=== PATIENT | female | born 1955 | race Caucasian/White ===

== ENCOUNTER → 2021-05-02 | Outpatient (RCR) | payer BC | LOC: PT 04-18 14:52 | PROVIDERS: ATTEND Specialist | DX: M17.12 Unilateral primary osteoarthritis, left knee (principal); M76.892 Other specified enthesopathies of left lower limb, excluding foot ==

== ENCOUNTER 2021-06-01 12:58 | Outpatient (RCR) | payer BC | END 2021-06-02 | LOC: PT 12:58 | PROVIDERS: ATTEND Specialist | DX: M17.12 Unilateral primary osteoarthritis, left knee (principal); M76.892 Other specified enthesopathies of left lower limb, excluding foot ==

== ENCOUNTER 2021-06-14 17:00 | Outpatient (RCR) | payer BC | END 2021-07-03 | LOC: PT 17:00 | PROVIDERS: ATTEND Specialist | DX: M17.12 Unilateral primary osteoarthritis, left knee (principal); M76.892 Other specified enthesopathies of left lower limb, excluding foot | CPT/HCPCS: 97139 ==